=== PATIENT | male | born 1990 | race Caucasian/White ===

== ENCOUNTER 2022-11-16 22:09 | Emergency (ER) | payer SELFPAY ==
[~2022-11-16] VITALS: Ht 180.3 cm; Wt 95.0 kg
[2022-11-16 22:16] VITALS: BP 122/77
== END 2022-11-16 23:25 | disposition home or self-care (01) ==
LOC: ER 22:09
DX: S49.92XA Unspecified injury of left shoulder and upper arm, initial encounter (principal); F10.129 Alcohol abuse with intoxication, unspecified; Y90.0 Blood alcohol level of less than 20 mg/100 ml; Z87.891 Personal history of nicotine dependence; W50.1XXA Accidental kick by another person, initial encounter; Y93.89 Activity, other specified; Y92.89 Other specified places as the place of occurrence of the external cause; Y99.8 Other external cause status
CPT/HCPCS: 99281

== ENCOUNTER 2022-11-17 00:54 | Emergency (ER) | payer SELFPAY | END 2022-11-17 03:35 | disposition left against medical advice (07) | LOC: ER 00:54 | DX: Z53.21 Procedure and treatment not carried out due to patient leaving prior to being seen by health care provider (principal) ==

== ENCOUNTER 2023-01-18 07:12 | Emergency (ER) | payer MEDICAID ==
[~2023-01-18] VITALS: Ht 175.3 cm; Wt 82.0 kg
[2023-01-18 07:22] VITALS: BP 138/76
[2023-01-18] MEDS ORDERED: SODIUM CHLORIDE 0.9% 1,000 ML IV ONE (08:00)
== END 2023-01-18 11:14 | disposition home or self-care (01) ==
LOC: ER 07:12
DX: F10.129 Alcohol abuse with intoxication, unspecified (principal); Y90.9 Presence of alcohol in blood, level not specified
CPT/HCPCS: 99283; J7030

== ENCOUNTER 2023-11-17 11:32 | Emergency (ER) | payer MEDICAID ==
[~2023-11-17] VITALS: Ht 175.3 cm; Wt 88.0 kg
[2023-11-17 11:35] VITALS: BP 165/80; PULSE 115; RESP 16; TEMP 98.3; O2SAT 100
[2023-11-17] MEDS ORDERED: MIDAZOLAM HCL 2 MG/2 ML VIAL IV ONE (11:45)
[2023-11-17] MEDS ORDERED: SODIUM CHLORIDE 0.9% 1,000 ML IV ONE (11:45)
[2023-11-17 12:24] LABS: BASOPHILS % 0.8 % (0.0-2.0); EOSINOPHILS % 1.1 % (0.0-5.0); HEMATOCRIT. 41.2 % (42.0-52.0); HEMOGLOBIN. 13.4 g/dL (14.0-18.0); LYMPHOCYTES % 25.4 % (20.0-50.0); MEAN CORPUSCULAR HEMOGLOBIN 30.4 pg (28.0-32.0); MEAN CORPUSCULAR HGB CONC 32.6 g/dL (31.0-37.0); MEAN CORPUSCULAR VOLUME 93.4 fL (80.0-94.0); MEAN PLATELET VOLUME 6.9 fl (7.4-10.4); NEUTROPHILS % 65.7 % (40.0-76.0); PLATELET 227 x1000/uL (130-400); RED BLOOD CELL COUNT 4.41 mill/uL (4.7-6.1); RED CELL DISTRIBUTION WIDTH 14.3 % (11.6-14.6); WHITE BLOOD COUNT 4.9 x1000/uL (4.5-11.0)
[2023-11-17 12:37] LABS: ACETAMINOPHEN < 2 ug/mL (10-30); CALCIUM 9.1 mg/dL (8.7-10.4); CARBON DIOXIDE 25 mEq/L (21-32); CHLORIDE 107 mEq/L (98-107); CREATININE 0.8 mg/dL (0.6-1.3); ETHANOL BLOOD 165 mg/dL (<10); GLUCOSE 77 mg/dL (70-105); SODIUM 142 mEq/L (136-145); UREA NITROGEN BLOOD 13 mg/dL (9-23)
== END 2023-11-17 12:25 | disposition left against medical advice (07) ==
LOC: ER 11:40
DX: T62.0X1A Toxic effect of ingested mushrooms, accidental (unintentional), initial encounter (principal); F15.129 Other stimulant abuse with intoxication, unspecified; F10.10 Alcohol abuse, uncomplicated; Y92.89 Other specified places as the place of occurrence of the external cause; Y90.6 Blood alcohol level of 120-199 mg/100 ml
CPT/HCPCS: 80048; 80307; 80329; 80320; 85025; 36415; 99283; J7030; G0480

== ENCOUNTER 2024-09-22 09:44 | Emergency (ER) | payer MEDICAID ==
[~2024-09-22] VITALS: Ht 180.3 cm; Wt 100.0 kg
[2024-09-22 09:54] VITALS: O2SAT 95
[2024-09-22 10:25] VITALS: TEMP 36.78072
[2024-09-22 14:31] VITALS: BP 104/71; PULSE 98; RESP 20; O2SAT 99
== END 2024-09-22 17:55 | disposition home or self-care (01) ==
LOC: ER 09:55
DX: F10.129 Alcohol abuse with intoxication, unspecified (principal); M54.2 Cervicalgia; Y90.9 Presence of alcohol in blood, level not specified
CPT/HCPCS: 73030; 99284

== ENCOUNTER 2024-09-26 18:38 | Emergency (ER) | payer MEDICAID ==
[~2024-09-26] VITALS: Ht 180.3 cm; Wt 100.0 kg
[2024-09-26 18:54] VITALS: BP 107/76; PULSE 87; RESP 16; TEMP 98.3; O2SAT 99
[2024-09-26 19:20] LABS: MEAN PLATELET VOLUME 7.1 fl (7.4-10.4)
[2024-09-26 19:22] LABS: EOSINOPHILS % 0.3 % (0.0-5.0); HEMATOCRIT. 45.3 % (42.0-52.0); HEMOGLOBIN. 15.1 g/dL (14.0-18.0); LYMPHOCYTES % 48.7 % (20.0-50.0); MEAN CORPUSCULAR HEMOGLOBIN 32.1 pg (28.0-32.0); MEAN CORPUSCULAR HGB CONC 33.3 g/dL (31.0-37.0); MEAN CORPUSCULAR VOLUME 96.3 fL (80.0-94.0); MONOCYTES % 5.7 % (2.0-8.0); NEUTROPHILS % 44.3 % (40.0-76.0); PLATELET 245 x1000/uL (130-400); RED BLOOD CELL COUNT 4.71 mill/uL (4.7-6.1); RED CELL DISTRIBUTION WIDTH 16.4 % (11.6-14.6); WHITE BLOOD COUNT 5.3 x1000/uL (4.5-11.0)
[2024-09-26 19:25] LABS: CHLORIDE 110 mEq/L (98-107); POTASSIUM 4.3 mEq/L (3.5-5.1); SODIUM 145 mEq/L (136-145)
[2024-09-26 19:26] LABS: CALCIUM 9.4 mg/dL (8.7-10.4); CARBON DIOXIDE 26 mEq/L (21-32); DIFFERENTIAL COMMENT 1
[2024-09-26 19:31] LABS: CREATININE 0.8 mg/dL (0.6-1.3); GLUCOSE 147 mg/dL (70-105); UREA NITROGEN BLOOD 7 mg/dL (9-23)
[2024-09-26 20:23] LABS: ETHANOL BLOOD 551 mg/dL (<10)
[2024-09-26] MEDS ORDERED: CHLORDIAZEPOXIDE 25MG CAPSULE PO ONE (21:00)
== END 2024-09-27 00:53 | disposition home or self-care (01) ==
LOC: ER 18:38
DX: T51.0X1A Toxic effect of ethanol, accidental (unintentional), initial encounter (principal); F10.129 Alcohol abuse with intoxication, unspecified; X58.XXXA Exposure to other specified factors, initial encounter; Y90.8 Blood alcohol level of 240 mg/100 ml or more
CPT/HCPCS: 36415; 80048; 80320; 85025; 99283; G0480

== ENCOUNTER 2024-09-27 20:22 | Emergency (ER) | payer MEDICAID ==
[~2024-09-27] VITALS: Ht 172.7 cm; Wt 100.0 kg
[2024-09-27 20:26] VITALS: O2SAT 100
[2024-09-27 21:12] LABS: CLARITY URINE CLEAR (CLEAR); COLOR URINE YELLOW (YELLOW); GLUCOSE URINE NEGATIVE (NEGATIVE); KETONES URINE NEGATIVE (NEGATIVE); LEUKOCYTE ESTERASE URINE NEGATIVE (NEGATIVE); NITRITE URINE NEGATIVE (NEGATIVE); OCCULT BLOOD URINE NEGATIVE (NEGATIVE); PH URINE 5.5 (4.5-8.0); PROTEIN URINE NEGATIVE (NEGATIVE); SPECIFIC GRAVITY URINE 1.006 (1.005-1.030); UROBILINOGEN URINE 0.2 E.U./dL (0.2-1.0)
[2024-09-27 21:15] LABS: BASOPHILS % 0.5 % (0.0-2.0); EOSINOPHILS % 0.3 % (0.0-5.0); HEMATOCRIT. 41.9 % (42.0-52.0); LYMPHOCYTES % 46.1 % (20.0-50.0); MEAN CORPUSCULAR HEMOGLOBIN 31.8 pg (28.0-32.0); MEAN CORPUSCULAR HGB CONC 33.5 g/dL (31.0-37.0); MEAN CORPUSCULAR VOLUME 94.9 fL (80.0-94.0); MEAN PLATELET VOLUME 6.8 fl (7.4-10.4); MONOCYTES % 4.2 % (2.0-8.0); NEUTROPHILS % 48.9 % (40.0-76.0); PLATELET 257 x1000/uL (130-400); RED BLOOD CELL COUNT 4.41 mill/uL (4.7-6.1); RED CELL DISTRIBUTION WIDTH 16.2 % (11.6-14.6); WHITE BLOOD COUNT 5.5 x1000/uL (4.5-11.0)
[2024-09-27 21:22] LABS: CHLORIDE 110 mEq/L (98-107); POTASSIUM 3.5 mEq/L (3.5-5.1); SODIUM 145 mEq/L (136-145)
[2024-09-27 21:23] LABS: CARBON DIOXIDE 27 mEq/L (21-32)
[2024-09-27 21:24] LABS: CALCIUM 8.7 mg/dL (8.7-10.4)
[2024-09-27 21:28] LABS: CREATININE 0.9 mg/dL (0.6-1.3)
[2024-09-27 21:29] LABS: ETHANOL BLOOD 300 mg/dL (<10); GLUCOSE 115 mg/dL (70-105); UREA NITROGEN BLOOD 10 mg/dL (9-23)
[2024-09-27 21:30] LABS: ALANINE AMINOTRANSFERASE 49 IU/L (10-49); ALBUMIN 4.4 g/dL (3.2-4.8); ASPARTATE AMINOTRANSFERASE 52 IU/L (<34)
[2024-09-27 21:31] LABS: BILIRUBIN TOTAL 0.2 mg/dL (0.1-1.0); PROTEIN TOTAL 7.3 g/dL (6.0-8.3)
[2024-09-27 21:32] LABS: BILIRUBIN DIRECT < 0.1 mg/dL (<=3.0); TROPONIN I HIGH SENSITIVITY < 4 ng/L (3.0-53)
[2024-09-27 21:43] LABS: *AMPHETAMINES SCREEN URINE NEGATIVE (NEGATIVE)
[2024-09-27 21:44] LABS: *BARBITURATES SCREEN URINE NEGATIVE (NEGATIVE); *BENZODIAZEPINES SCREEN URINE NEGATIVE (NEGATIVE); *COCAINE SCREEN URINE NEGATIVE (NEGATIVE); CANNABINOID URINE SCREEN NEGATIVE (NEGATIVE); ECSTASY MDMA SCREEN URINE NEGATIVE (NEGATIVE); METHADONE URINE SCREEN NEGATIVE (NEGATIVE); OPIATES URINE SCREEN NEGATIVE (NEGATIVE); PHENCYCLIDINE URINE SCREEN NEGATIVE (NEGATIVE)
[2024-09-28 02:13] VITALS: BP 127/74; PULSE 75; RESP 18; TEMP 36.72516; O2SAT 100
== END 2024-09-28 02:06 | disposition home or self-care (01) ==
LOC: ER 20:22
DX: F10.129 Alcohol abuse with intoxication, unspecified (principal); R41.82 Altered mental status, unspecified; Y90.8 Blood alcohol level of 240 mg/100 ml or more
CPT/HCPCS: 36415; 80048; 80076; 80305; 80320; 81003; 84484; 85025; 99284; G0480

== ENCOUNTER 2024-09-28 03:45 | Emergency (ER) | payer MEDICAID ==
[~2024-09-28] VITALS: Ht 180.3 cm; Wt 100.0 kg
[2024-09-28 04:05] VITALS: TEMP 98.3; O2SAT 99
[2024-09-28 04:06] VITALS: BP 118/80; PULSE 119; O2SAT 100
[2024-09-28] MEDS ORDERED: ACETAMINOPHEN 325MG TABLET PO ONE (04:30)
[2024-09-28] MEDS: LORAZEPAM 0.5MG TABLET PO ONE (04:45)
[2024-09-28 04:58] VITALS: RESP 18
== END 2024-09-28 04:45 | disposition home or self-care (01) ==
LOC: ER 03:45
DX: F10.129 Alcohol abuse with intoxication, unspecified (principal); F19.90 Other psychoactive substance use, unspecified, uncomplicated; Y90.9 Presence of alcohol in blood, level not specified
CPT/HCPCS: 99283

== ENCOUNTER 2024-09-28 19:09 | Emergency (ER) | payer MEDICAID ==
[~2024-09-28] VITALS: Ht 170.2 cm; Wt 76.0 kg
[2024-09-28 19:10] VITALS: BP 128/66; PULSE 98; RESP 16; TEMP 98.7; O2SAT 98
== END 2024-09-28 22:41 | disposition home or self-care (01) ==
LOC: ER 19:09
DX: F10.129 Alcohol abuse with intoxication, unspecified (principal); Y90.9 Presence of alcohol in blood, level not specified
CPT/HCPCS: 99283

== ENCOUNTER 2024-09-28 23:18 | Emergency (ER) | payer MEDICAID ==
[~2024-09-28] VITALS: Ht 175.3 cm; Wt 88.9 kg
[2024-09-28 23:24] VITALS: BP 139/82; RESP 18; TEMP 98.2; O2SAT 96
[2024-09-28 23:32] VITALS: PULSE 116; O2SAT 96
== END 2024-09-28 23:55 | disposition left against medical advice (07) ==
LOC: ER 23:46
DX: F10.129 Alcohol abuse with intoxication, unspecified (principal); Z53.21 Procedure and treatment not carried out due to patient leaving prior to being seen by health care provider; Y90.9 Presence of alcohol in blood, level not specified